=== PATIENT | female | born 1945 | race Caucasian/White ===

== ENCOUNTER → 2020-07-25 15:09 | Outpatient (CLI) | payer MEDICARE, SELFPAY ==
--- NOTE | ~2020-07-25 | XR_ITS ---
EXAMINATION: XR cervical spine 4-5V EXAM DATE: 07/25/2020 15:34 INDICATION: Neck pain . TECHNIQUE: Cervical spine frontal, lateral, lateral swimmers, and open-mouth odontoid projections. There is no prior study for comparison. FINDINGS: There is 4-5 mm anterolisthesis C6 on C7. There is moderate to severe disc disease C3-4 an d 4-5, moderate at C5-6 and 6-7. There are no acute fractures identified. The odontoid process is int act. The lateral masses of C1 line up with C2. There is overall moderate cervical arthropathy. Lung apices unremarkable. Prevertebral soft tissue and pre-dens space are within normal limits. IMPRESSION: 1. Degenerative anterolisthesis C6 on C7. 2. Moderate to severe cervical spondylosis. Reviewed, dictated and finalized at location A.
== END ==
PROVIDERS: PCP Family Medicine; Visit Provider Physician Assistant
DX: M47.892 Other spondylosis, cervical region (principal)
CPT/HCPCS: 72050

== ENCOUNTER 2021-03-24 10:19 | Emergency (ER) | payer MEDICARE, SELFPAY ==
[2021-03-24 10:27] VITALS: BP 176/62; PULSE 65; RESP 18; TEMP 36.1; O2SAT 99
--- NOTE | 2021-03-24 11:22 | ED.SKABFB ---
HPI - Skin/Abscess/Foreign Bdy General Chief complaint: Skin/Abscess/Foreign Body Stated complaint: rash on arms Time Seen by Provider: 03/24/21 10:55 Source: patient Mode of arrival: ambulatory Limitations: no limitations History of Present Illness HPI narrative: This is a 75 year old female that presents to the ER for cold symptoms present x 3 weeks. Reports congestion, cough, sinus pain, and a mild sore throat. Also reports a rash on her arms that she has noted over the last couple of months. The rash is not painful or itchy. She is COVID vaccinated and boosted. Denies fever, chest pain or shortness of breath. Related Data Allergies Allergy/AdvReac Type Severity Reaction Status Date / Time No Known Allergies Allergy Unverified 04/10/17 05:34 Review of Systems Review of Systems: CONSTITUTIONAL: Denies fever ENT: Reports rhinorrhea, congestion, sore throat CARDIOVASCULAR: Denies chest pain RESPIRATORY: Reports cough. Denies dyspnea. All systems reviewed & are unremarkable except as noted in HPI and below PMFSH Past Medical History Medical History (Updated 03/24/21 @ 11:28 by Mignon Eugene PA-C) History of diabetes mellitus History of hyperlipidemia History of hypertension Social History Social History (Updated 03/24/21 @ 11:25 by Mignon Eugene PA-C) Smoking status: Never smoker Exam Narrative: GENERAL: Well-appearing, well-nourished, and in no acute distress. HEAD: Normocephalic, atraumatic. EYES: EOMI. ENT: Turbinates swollen and pale. Mucous membranes moist. Oropharynx without tonsillar hypertrophy exudate or other lesions. Bilateral TMs pearly newman non-bulging. Tender to palpation of the maxillary sinuses bilaterally NECK: Supple. No adenopathy or masses. CHEST: Clear to auscultation. No respiratory distress. No wheezes rales or rhonchi HEART: Regular rate and rhythm. No murmur heard. Normal peripheral pulses. EXTREMITIES: Normal range of motion. No edema. SKIN: Warm, dry. Small, brown macules present on the arms. No erythema, warmth or abnormal drainage NEURO: No focal deficits. Alert and oriented x3. PSYCH: Normal mood and affect Course Vital Signs Vital signs: Vital Signs Temperature 96.9 F L 03/24/21 10:27 Pulse Rate 65 03/24/21 10:27 Respiratory Rate 18 03/24/21 10:27 Blood Pressure 176/62 H 03/24/21 10:27 Pulse Oximetry 99 03/24/21 10:27 Temperature 96.9 F L 03/24/21 10:27 Pulse Rate 65 03/24/21 10:27 Respiratory Rate 18 03/24/21 10:27 Blood Pressure 176/62 H 03/24/21 10:27 Pulse Oximetry 99 03/24/21 10:27 MDM - Skin/Abscess/Foreign Bdy MDM Narrative Medical decision making narrative: Patient presents to the emergency department for symptoms of sinusitis ongoing for a couple of weeks. She is afebrile nontoxic-appearing. Oxygen saturation is normal on room air. Lungs are clear on exam. She is COVID vaccinated and boosted. Will be started on oral antibiotic and risk instructed on continued care of sinusitis. She also was reporting a rash that had been ongoing for months. She has some small, brown macules present on the arms. There is no concerning features on exam at this time. She was instructed that she should follow-up with a campus administrator for this. She does report she has a skin doctor that she has seen before. Patient is stable and felt appropriate for further outpatient evaluation. She was given warnings to return to the ER Critical Care Time Critical Care Time Critical Care Time: No Discharge Plan Discharge Clinical Impression: Sinusitis, bacterial, Rash and nonspecific skin eruption Patient Disposition: Home, Self-Care Condition: Stable Instructions: Antibiotic Form, Sinusitis (ED), Acute Rash (ED) Additional Instructions: Return to the emergency department for worsening symptoms, or any other concerns Remain well-hydrated, get plenty of rest. Take Tylenol or Motrin [id number] for pain as needed. Flonase for nasal
== END 2021-03-24 11:35 | disposition home or self-care (01) ==
PROVIDERS: Emergency Provider Emergency Medicine; PCP Family Medicine
DX: J32.9 Chronic sinusitis, unspecified (principal); R21 Rash and other nonspecific skin eruption; E11.9 Type 2 diabetes mellitus without complications; E78.5 Hyperlipidemia, unspecified; I10 Essential (primary) hypertension
CPT/HCPCS: 99283

== ENCOUNTER → 2023-04-02 15:56 | Outpatient (CLI) | payer MEDICARE, SELFPAY ==
--- NOTE | ~2023-04-02 | XR_ITS ---
XR shoulder RT min 2V DATE: 04/02/2023 16:15 INDICATION: Right shoulder pain TECHNIQUE: 4 views COMPARISON: None FINDINGS: There is osteopenia. Normal alignment at the acromioclavicular and glenohumeral joints. 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 Consider CT or MR examination for furt her evaluation. Otherwise no fracture or dislocation, periosteal reaction or bone destruction is noted. IMPRESSION: Calcified or ossified bone densities near superolateral aspect of glenoid; consider synov ial osteochondromatosis, soft tissue calcifications or chronic fracture fragments Reviewed, dictated and finalized at location L. 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
== END ==
PROVIDERS: PCP Family Medicine; Visit Provider Family Medicine
DX: M25.811 Other specified joint disorders, right shoulder (principal)
CPT/HCPCS: 73030